=== PATIENT | female | born 1965 | race Caucasian/White ===

== ENCOUNTER 2017-05-31 10:53 | Day surgery (SDC) | payer OTHER ==
[~2017-05-31] VITALS: Ht 160 cm; Wt 73.0 kg
[2017-05-31] VITALS (16 sets, daily range): BP systolic 98–121; BP diastolic 56–77; PULSE 58–82; RESP 12–24; Ht 160 cm; Wt 73.0 kg
[~2017-05-31 10:53] MED LIST: CEFAZOLIN 2 GM/50 ML (PMX) 50 ML IVPB ONE; SOD CHLORIDE 0.9% 1,000 ML IV SCH
[2017-05-31] MEDS ORDERED: FENTAnyl 50 MCG/ML VIAL IV PRN (11:00)
[2017-05-31] MEDS ORDERED: MEPERIDINE 25 MG INJ IV PRN (11:00)
[2017-05-31] MEDS ORDERED: HYDROmorphONE (0.2 MG/ML) 10ML SYG IV PRN ×2 (11:00)
[2017-05-31] MEDS ORDERED: ONDANSETRON 4 MG INJ IV PRN (11:00)
[2017-05-31] MEDS ORDERED: PROCHLORPERAZINE 10 MG INJ IV PRN (11:00)
[2017-05-31] MEDS ORDERED: OXYCODONE/ACETAMINOPHEN (5/325) TAB PO PRN ×2 (11:00)
[2017-05-31] MEDS ORDERED: DIPHENHYDRAMINE 50 MG INJ IV PRN (11:00)
[2017-05-31] MEDS ORDERED: MIDAZOLAM 1 MG/ML 2 ML INJ ONE (11:59)
[2017-05-31] MEDS ORDERED: LIDOCAINE 2% (SDV) 5 ML INJ ONE (11:59)
[2017-05-31] MEDS ORDERED: FENTAnyl 50 MCG/ML VIAL ONE ×2 (11:59→13:36)
[2017-05-31] MEDS ORDERED: PROPOFOL 20 ML ONE ×3 (11:59→13:55)
[2017-05-31] MEDS ORDERED: SYN112 PO (12:33)
[2017-05-31] MEDS ORDERED: LIDOCAINE 1% (MPF) 30 ML INJ ONE (12:54)
[2017-05-31] MEDS ORDERED: BUPIVACAINE 0.25% (MPF) 30 ML INJ ONE ×2 (12:54→14:36)
[2017-05-31] MEDS ORDERED: CEFAZOLIN 1 GM INJ ONE (13:12)
--- NOTE | 2017-05-31 13:13 | RADRPT ---
PROCEDURE: XR Chest AP portable CLINICAL INDICATION: Hemorrhoidectomy TECHNIQUE: An AP portable radiograph of the chest was submitted. COMPARISON: None. FINDINGS: Support Hardware: None Cardiovascular: The cardiovascular silhouette appears unremarkable. Lung [place]: The lung [place]way appear clear with no nodule, alveolar infiltrate, or interstitial promi nence evident. Pleural Spaces: No pneumothorax or pleural effusion is identified. Osseous Structures: The osseous structures appear intact. Soft Tissues: The soft tissues appear generous. IMPRESSION: Unremarkable portable chest. Physician Ami Date Time Electronically viewed and signed by Patel Kaiser Physician on 05/31/2017 13:12 /
[2017-05-31] MEDS ORDERED: ONDANSETRON 4 MG INJ ONE (13:16)
[2017-05-31] MEDS ORDERED: METOCLOPRAMIDE 10 MG INJ ONE (13:16)
[2017-05-31] MEDS ORDERED: KETOROLAC 30 MG INJ ONE (13:51)
--- NOTE | 2017-05-31 14:14 | OPR ---
Date/Time of Note Date/Time of Note DATE: 05/31/17 TIME: 14:08 Operative Report Procedure Date: May 31, 2017 Preoperative Diagnosis internal and externa hemorrhoids, perianal anterior mass, posterior anal fissure Postoperative Diagnosis same Operation Performed 1. proctoplasty for prolapse of mucous membranes cpt code 82849 2. ligation of internal hemorrhoids multiple procedures cpt code 04768 3. rigid sigmoidoscopy 4. resection of perianal mass 2 cm mass 5. resection of posterior anal fissure 1 cm 6 therapeutic injection of subcutaneous marcaine Surgeon: Cheo ZHANG Anesthesia Type: MAC Estimated Blood Loss: 10 - 50 ml's Specimens posterior anal fissure anterior perianal mass Grafts/Implants: none Complications: no Indications This is a 52-year-old female with internal/external hemorrhoids and a posterior anal fissure and anterior perianal mass. Patient requires surgical repair. Risks alternatives benefits and percent were discussed the patient. Patient's best understanding consents to the operation. Procedure Description Patient is taken to the OR and prepped and draped in usual sterile fashion surgical timeout was performed IV antibiotics given. Rigid sigmoidoscopy was performed. Prep was fair. There is no evidence of any masses or obstructive lesions. Using the THC device under ultrasound guidance multiple ligations of the internal hemorrhoidal artery were performed in multiple regions in a circular manner. This was performed in a [id number] fashion with 2-0 Vicryl. After all of these were placed under ultrasound guidance completing the multiple internal hemorrhoidal artery ligation proctoplasty was performed. The proctoplasty was performed by running 2-0 Vicryl from proximal to distal to the dentate line. The suture was then tied down thus performed the proctoplasty after the sutures were run in multiple regions circumferentially. There is good hemostasis. Attention was then paid to perianal anterior mass. This was excised using a 15 blade and hand-held cautery. Hemostasis was established. The posterior fissure was dressed in a similar fashion by first grasping with Allis graspers and excising with cautery. There is good hemostasis. Therapeutic subcutaneous Marcaine was injected through all surgical sites. The patency of the anal canal was reexamined with 2 finger manual examination. There is no evidence of any obstruction. Dry dressings were applied. Cheo ZHANG May 31, 2017 14:14
[2017-05-31] MEDS ORDERED: HYDROCODONE/APAP (5/325) TAB PO ONE (14:30)
--- NOTE | 2017-06-04 17:05 | RADRPT ---
Vent Rate: 75 bpm RR Interval: 0 msec AL Interval: 144 msec QRS Duration: 94 msec QT Interval: 410 msec QTC Interval: 457 msec P-R-T [place]: 71 - 44 - 33 degrees Normal sinus rhythm Normal ECG Electronically Signed By: Wing High [id number]
== END 2017-05-31 17:00 | disposition home or self-care (01) ==
LOC: SDS 10:53
PROVIDERS: ATTEND Surgery
DX: K64.8 Other hemorrhoids (principal); K64.4 Residual hemorrhoidal skin tags; K62.0 Anal polyp; K60.2 Anal fissure, unspecified; E11.9 Type 2 diabetes mellitus without complications; E03.9 Hypothyroidism, unspecified; Z88.5 Allergy status to narcotic agent
CPT/HCPCS: 45505; 46922; 46946; 71010; 84703; 88304; 88307; 93005; J0690; J1170; J1885; J2175; J2250; J2405; J2765; J3010; Z7512; Z7610

== ENCOUNTER 2017-06-19 11:10 | Emergency (ER) | payer OTHER ==
[~2017-06-19] VITALS: Ht 160 cm; Wt 73.0 kg
[~2017-06-19 11:10] MED LIST changes: -CEFAZOLIN 2 GM/50 ML (PMX) 50 ML IVPB ONE; -SOD CHLORIDE 0.9% 1,000 ML IV SCH; +SYN112 PO
[2017-06-19 11:14] VITALS: Ht 160 cm; Wt 73.0 kg
[2017-06-19] MEDS ORDERED: PRED20TA PO (11:39)
[2017-06-19] MEDS ORDERED: CETI10CA PO (11:39)
[2017-06-19] MEDS ORDERED: BEN25 PO (11:39)
--- NOTE | 2017-06-19 11:47 | ERD ---
ER Documentation Chief Complaint Date/Time DATE: 06/19/17 TIME: 11:41 Chief Complaint pt bib family with c/o rash and itching around face, "allergy to meds?" HPI Patient is a 52-year-old male who female who presents to the emergency department for concerns of a rash and facial itching which started 2 days ago. Patient states 3 days ago she underwent was placed on metronidazole. Patient states she is not taking this medication for the last 2 days. Patient is taking this medication after hemorrhoidectomy. Patient states the rash is erythematous and splotchy nature. Patient reports itching. Patient denies negative medication. Patient denies any shortness of breath, lip swelling, tongue swelling, nausea, vomiting or LOC. Patient denies any new creams, lotions, foods, pets or detergents., Detergents or any other new medications. ROS All systems reviewed and are negative except as per history of present illness. Medications Home Meds Active Scripts Diphenhydramine Hcl* (Benadryl*) 25 Mg Cap, 25 MG PO Q6, #30 CAP Prov:NALINI CALVO PA-C 06/19/17 Cetirizine Hcl* (Zyrtec*) 10 Mg Capsule, 10 MG PO DAILY, #10 TAB.CHEW Prov:NALINI CALVO PA-C 06/19/17 Prednisone* (Prednisone*) 20 Mg Tab, 40 MG PO DAILY for 5 Days, TAB Prov:NALINI CALVO PA-C 06/19/17 Reported Medications Levothyroxine Sodium* (Levothyroxine Sodium*) 112 Mcg Tablet, 1 TAB PO DAILY, # 30 05/31/17 Allergies Allergies: Coded Allergies: codeine (Verified Allergy, Unknown, 05/31/17) PMhx/Soc History of Surgery: Yes (C SECTION X 1 ,CHOLECYSTECTOMY) Anesthesia Reaction: No Hx Neurological Disorder: No Hx Respiratory Disorders: No Hx Cardiac Disorders: No Hx Psychiatric Problems: No Hx Miscellaneous Medical Probl: No Hx Alcohol Use: No Hx Substance Use: No Hx Tobacco Use: No Physical Exam Vitals Vital Signs Date Time Temp Pulse Resp B/P Pulse Ox O2 Delivery O2 Flow Rate FiO2 06/19/17 11:14 99.2 90 16 133/71 97 Physical Exam GENERAL: Well-developed, well-nourished female. Appears in no acute distress. Speaking in full sentences. HEAD: Normocephalic, atraumatic. EYES: Pupils are equally reactive bilaterally. EOMs grossly intact. No conjunctival erythema. ENT: Moist mucous membranes. No uvula deviation. No kissing tonsils. No lip swelling, no tongue swelling, throat closure noted. NECK: Supple. No meningismus. Normal range of motion of the neck. LUNG: Clear to auscultation bilaterally. No rhonchi, wheezing, rales or coarse breath sounds. HEART: Regular rate and rhythm. No murmurs, rubs or gallops. EXTREMITIES: Equal pulses bilaterally. No peripheral clubbing, cyanosis or edema. No unilateral leg swelling. NEUROLOGIC: Alert and oriented. Moving all four extremities without any difficulty. Normal speech. Steady gait. SKIN: Normal color. Warm and dry. Facial swelling noted. No facial erythema noted.Chest with splotchy erythematous lesions, not raised. No streaking. No warmth. No swelling. Procedures/MDM MEDICAL DECISION MAKING: This is a 52-year-old female presents the ED for concerns of a rash and itching to her face and chest after recently starting metronidazole 2 days ago. Vital signs were reviewed. Patient was afebrile. Patient is not diabetic. She denied any new creams, lotions, products, foods, pets or other medications. At this time the patient imaging may be consistent with a possible allergic reaction to metronidazole. Patient was encouraged to stop this medication. Patient was advised to follow-up with her doctor who prescribed metronidazole for medication change. I have a much lower clinical concern for necrotizing fasciitis, sepsis, gangrene, Keaton-Gurjit syndrome, toxic epidural necrolysis , abscess, cellulitis, herpes zoster, viral exanthem, anaphylaxis, fungal infection, insect bite, impetigo, dermatitis. PRESCRIPTIONS: Prednisone, Zyrtec, Benadryl DISCHARGE: At this time, patient is stable for discharge and outpatient management. I have advised the patient to avoid any new products, creams or possible allergens. I have advised the patient to avoid scratching the lesions. I have instructed the patient to follow-up with his/her primary care physician in 1-2 days. If symptoms persist, patient may need to see a corduroy cutting supervisor for further examinations and testing. I have instructed the patient to promptly return to the ER at any time for any new or worsening symptoms including increased pain, fever, redness, swelling, warmth, difficulty breathing or vomiting. The patient and/or family expressed understanding of and agreement with this plan. All questions were answered. Home care instructions were provided. Disclaimer: Inadvertent spelling and grammatical errors are likely due to EHR/ dictation software use and do not reflect on the overall quality of patient care. Also, please note that the electronic time recorded on this note does not necessarily reflect the actual time of the patient encounter. Departure Diagnosis: Primary Impression: Allergy or intolerance to drug Condition: Stable Patient Instructions: Allergic Reaction, Drug Referrals: [facility] YOU HAVE RECEIVED A MEDICAL SCREENING EXAM AND THE RESULTS INDICATE THAT YOU DO NOT HAVE A CONDITION THAT REQUIRES URGENT TREATMENT IN THE EMERGENCY DEPARTMENT. FURTHER EVALUATION AND TREATMENT OF YOUR CONDITION CAN WAIT UNTIL YOU ARE SEEN IN YOUR DOCTORS OFFICE WITHIN THE NEXT 1-2 DAYS. IT IS YOUR RESPONSIBILITY TO MAKE AN APPOINTMENT FOR FOLOW-UP CARE. IF YOU HAVE A PRIMARY DOCTOR --you should call your primary doctor and schedule an appointment IF YOU DO NOT HAVE A PRIMARY DOCTOR YOU CAN CALL OUR PHYSICIAN REFERRAL HOTLINE AT IF YOU CAN NOT AFFORD TO SEE A PHYSICIAN YOU CAN CHOSE FROM THE FOLLOWING [facility] [address] [facility]. [facility] [address] [facility]. [facility] [address] [facility] [facility] [address] [facility] [facility] [address] [facility]. [facility]. [address] [facility]. [facility] YOU HAVE RECEIVED A MEDICAL SCREENING EXAM AND THE RESULTS INDICATE THAT YOU DO NOT HAVE A CONDITION THAT REQUIRES URGENT TREATMENT IN THE EMERGENCY DEPARTMENT. FURTHER EVALUATION AND TREATMENT OF YOUR CONDITION CAN WAIT UNTIL YOU ARE SEEN IN YOUR DOCTORS OFFICE WITHIN THE NEXT 1-2 DAYS. IT IS YOUR RESPONSIBILITY TO MAKE AN APPOINTMENT FOR FOLOW-UP CARE. IF YOU HAVE A PRIMARY DOCTOR --you should call your primary doctor and schedule and appointment IF YOU DO NOT HAVE A PRIMARY DOCTOR YOU CAN CALL OUR PHYSICIAN REFERRAL HOTLINE AT . IF YOU CAN NOT AFFORD TO SEE A PHYSICIAN YOU CAN CHOSE FROM THE FOLLOWING [facility] INSTITUTIONS: [facility] [address] [place] [address] [facility] [address] [place] [address] [facility] [address] [place] [address] Additional Instructions: Stop taking Metronidazole. Follow up with your doctor to have medication changed. Call your primary care doctor TOMORROW for an appointment during the next 1-2 days.See the doctor sooner or return here if your condition worsens before your appointment time. NALINI CALVO PA-C Jun 19, 2017 11:47
== END 2017-06-19 13:27 | disposition home or self-care (01) ==
LOC: FTE 11:10
DX: R21 Rash and other nonspecific skin eruption (principal)
CPT/HCPCS: 99283

== ENCOUNTER 2017-12-21 11:49 | Day surgery (SDC) | END 2017-12-21 17:35 | disposition home or self-care (01) ==